=== PATIENT | male | born 1965 | race Caucasian/White ===

== ENCOUNTER 2017-04-20 23:46 | Emergency (ER) | payer OTHER ==
[~2017-04-20] VITALS: Ht 182.9 cm; Wt 93.0 kg
[~2017-04-20 23:46] MED LIST: DIAZ10TA PO; DOXY100T PO; IBUP-1223 PO; OXYC-306 PO; OXYC40TA27 PO; OXYC5TAB3 PO; SULF1TAB24 PO
[2017-04-20 23:58] VITALS: BP 131/82
[2017-04-21 00:46] LABS: BASOPHILS # (AUTO) 0.11 x10^3/uL (0-0.1); BASOPHILS % (AUTO) 1 % (0-1); EOSINOPHILS # (AUTO) 0.14 x10^3/uL (0-0.4); EOSINOPHILS % (AUTO) 1 % (1-7); LYMPHOCYTES # (AUTO) 2.85 x10^3/uL (1-3.4); LYMPHOCYTES % (AUTO) 22 % (22-44); MD NO; MEAN CORPUSCULAR HEMOGLOBIN 27.8 pg (27.5-34.5); MEAN CORPUSCULAR HGB CONC 32.8 g/dL (33.2-36.2); MEAN CORPUSCULAR VOLUME 84.7 fL (81-97); MEAN PLATELET VOLUME 8.4 fL (7.4-10.4); MONOCYTES # (AUTO) 0.94 x10^3/uL (0.2-0.8); MONOCYTES % (AUTO) 7 % (2-9); NEUTROPHILS % (AUTO) 68 % (42-75); PLATELET COUNT 397 x10^3/uL (130-400); RED BLOOD COUNT 5.16 x10^6/uL (4.38-5.82); RED CELL DISTRIBUTION WIDTH 14.6 % (9.4-14.8)
[2017-04-21 00:55] LABS: ALBUMIN 3.7 g/dL (3.4-5.0); ANION GAP 8 mmol/L (5-15); CALCIUM 8.9 mg/dL (8.5-10.1); CHLORIDE 105 mmol/L (98-107); CREATININE 0.86 mg/dL (0.7-1.3)
[2017-04-21 00:58] LABS: TROPONIN I < 0.015 ng/mL (0.000-0.045)
[2017-04-21] MEDS ORDERED: DEXTROSE 50%, 50ML SYRINGE IVPush ONE (01:00)
[2017-04-21] MEDS ORDERED: KETOROLAC 30 MG/1 ML ONE (02:29)
[2017-04-21] MEDS ORDERED: HYDROcodone/APAP 5/325 TABLET ONE (02:29)
[2017-04-21] MEDS ORDERED: KETOROLAC 30 MG/1 ML IM ONE (02:30)
[2017-04-21] MEDS ORDERED: HYDROcodone/APAP 5/325 TABLET PO ONE (02:30)
== END 2017-04-21 02:37 | disposition home or self-care (01) ==
LOC: ED 04-21 00:01
DX: S06.0X0A Concussion without loss of consciousness, initial encounter (principal); S13.4XXA Sprain of ligaments of cervical spine, initial encounter; M47.892 Other spondylosis, cervical region; F17.200 Nicotine dependence, unspecified, uncomplicated; G40.909 Epilepsy, unspecified, not intractable, without status epilepticus; W22.8XXA Striking against or struck by other objects, initial encounter; Y93.89 Activity, other specified; Y92.89 Other specified places as the place of occurrence of the external cause; Y99.8 Other external cause status; Z98.1 Arthrodesis status; Z88.5 Allergy status to narcotic agent
CPT/HCPCS: 36415; 70450; 71045; 72125; 80048; 82040; 84484; 85025; 93005; 96372; 99285; J1885

== ENCOUNTER 2017-07-07 10:07 | Emergency (ER) | payer SELFPAY ==
[~2017-07-07] VITALS: Ht 182.9 cm; Wt 91.0 kg
[2017-07-07] MEDS ORDERED: SODIUM CHLORIDE FLUSH 10ML SYR IVF ONE (10:30)
[2017-07-07] MEDS ORDERED: VANCOMYCIN PER PHARMACY MC ONE (10:30)
[2017-07-07] MEDS ORDERED: VANCOMYCIN 1,800 MG in SODIUM CHLORIDE 0.9% 250 ML IV ONE (11:00)
[2017-07-07 11:05] LABS: BASOPHILS # (AUTO) 0.03 x10^3/uL (0-0.1); BASOPHILS % (AUTO) 0 % (0-1); EOSINOPHILS # (AUTO) 0.22 x10^3/uL (0-0.4); EOSINOPHILS % (AUTO) 2 % (1-7); LYMPHOCYTES # (AUTO) 1.08 x10^3/uL (1-3.4); LYMPHOCYTES % (AUTO) 9 % (22-44); MD NO; MEAN CORPUSCULAR HEMOGLOBIN 28.2 pg (27.5-34.5); MEAN CORPUSCULAR VOLUME 85.4 fL (81-97); MEAN PLATELET VOLUME 7.9 fL (7.4-10.4); MONOCYTES # (AUTO) 0.83 x10^3/uL (0.2-0.8); MONOCYTES % (AUTO) 7 % (2-9); NEUTROPHILS # (AUTO) 10.18 x10^3/uL (1.8-6.8); NEUTROPHILS % (AUTO) 83 % (42-75); PLATELET COUNT 441 x10^3/uL (130-400); RED BLOOD COUNT 4.45 x10^6/uL (4.38-5.82); RED CELL DISTRIBUTION WIDTH 14.6 % (9.4-14.8)
[2017-07-07 11:16] LABS: ANION GAP 8 mmol/L (5-15); CALCIUM 8.2 mg/dL (8.5-10.1); CHLORIDE 103 mmol/L (98-107); CREATININE 0.82 mg/dL (0.7-1.3)
[2017-07-07] MEDS ORDERED: LIDOCAINE-MPF 1%, 5ML ONE ×2 (12:01)
[2017-07-07 13:10] VITALS: BP 108/60
== END 2017-07-07 13:13 | disposition home or self-care (01) ==
LOC: ED 11:32
DX: L02.416 Cutaneous abscess of left lower limb (principal)
CPT/HCPCS: 36415; 73701; 80048; 82040; 83605; 85025; 87040; 96365; 96366; 99285; J3370; J7050

== ENCOUNTER 2020-12-22 09:51 | Inpatient (IN) | payer MEDICAID ==
[~2020-12-22] VITALS: Ht 182.9 cm; Wt 91.8 kg
[~2020-12-22 09:51] MED LIST changes: -OXYC-306 PO; +OXYC1TAB16 PO; -OXYC5TAB3 PO; +OXYC5TAB98 PO; +SULF-23 PO; -SULF1TAB24 PO
[2020-12-22] MEDS ORDERED: SODIUM CHLORIDE 0.9% 1,000ML IVBOLUS ONE (10:00)
[2020-12-22] MEDS ORDERED: ACETAMINOPHEN 500 MG TABLET PO ONE (10:00)
[2020-12-22 10:55] LABS: BASOPHILS % (AUTO) 1 % (0-1); EOSINOPHILS % (AUTO) 1 % (1-7); LYMPHOCYTES % (AUTO) 14 % (22-44); MEAN CORPUSCULAR HEMOGLOBIN 27.9 pg (27.5-34.5); MEAN PLATELET VOLUME 8.2 fL (7.4-10.4); MONOCYTES % (AUTO) 8 % (2-9); NEUTROPHILS % (AUTO) 78 % (42-75); PLATELET COUNT 388 x10^3/uL (130-400); RED BLOOD COUNT 4.45 x10^6/uL (4.38-5.82)
[2020-12-22 11:06] LABS: ALANINE AMINOTRANSFERASE 37 U/L (12-78); ALBUMIN 3.1 g/dL (3.4-5.0); ANION GAP 9 mmol/L (5-15); CALCIUM 9.1 mg/dL (8.5-10.1); CHLORIDE 100 mmol/L (98-107); CREATININE 0.71 mg/dL (0.7-1.3)
[2020-12-22 11:08] LABS: ALKALINE PHOSPHATASE 140 U/L (45-117); BILIRUBIN,TOTAL 1.3 mg/dL (0.2-1.0); TOTAL PROTEIN 8.1 g/dL (6.4-8.2)
--- NOTE | 2020-12-22 13:04 | NUR ---
NO ANS X 1
--- NOTE | 2020-12-22 13:11 | NUR ---
TO ROOM FROM LOBBY. NAD.
[2020-12-22] MEDS ORDERED: VANCOMYCIN PER PHARMACY MC ONE (14:00)
[2020-12-22] MEDS ORDERED: LIDOCAINE 1%-EPI 1:100K, 20ML ONE (14:25)
[2020-12-22] MEDS ORDERED: ACETAMINOPHEN 500 MG TABLET ONE (14:26)
[2020-12-22] MEDS ORDERED: LIDOCAINE-MPF 1%, 5ML INFIL ONE (14:30)
[2020-12-22] MEDS ORDERED: PIPERACILLIN/TAZO 3.375 GM in DEXTROSE 5% 50 ML IVPB ONE (14:30)
[2020-12-22] MEDS ORDERED: VANCOMYCIN 2,300 MG in SODIUM CHLORIDE 0.9% 500 ML IV ONE ×3 (15:00→23:30)
--- NOTE | 2020-12-22 15:04 | NUR ---
BEDSIDE REPORT AND CARE FROM FELISA CHOI AT THIS TIME. PT RESTING IN POSITION OF COMFORT. ANTIBIOTICS REQUESTED FROM PHARMACY. A&OX4. VSS. TEMP IMPROVED FROM TIME OF ARRIVAL. AWAITING I&D. I&D SET UP AT BEDSIDE ALREADY BY EMT. PT DENIES NEED TO USE RESTROOM. ALL NEEDS MET AND ADDRESSED. FALL PRECAUTIONS IN PLACE. CALL LIGHT IN REACH
--- NOTE | 2020-12-22 15:21 | NUR ---
PT IN CT
--- NOTE | 2020-12-22 15:33 | NUR ---
CT FAILED- IV INFILTRATED; PT BACK TO ROOM 4 IN ER
--- NOTE | 2020-12-22 15:36 | NUR ---
PT BACK FROM CT, CT STAFF REPORTS IV INFILTRATED DURING EXAM. IV REMOVED, DRESSING CDI. NEW IV TO BE PLACED.
--- NOTE | 2020-12-22 15:51 | NUR ---
DISCUSSED IV INFILTRATION WITH DR. AGUIRRE, AWARE. PT WITH ECCHYMOSIS, SWELLING AT IV SITE. IV REMOVED. DRESSING CDI. WARM COMPRESS IN PLACE PER ERP. DISCUSSED IV ANTIBIOTICS WITH AND PHARMACIST, MICK TO RAOUL SUTHERLAND SENT FROM PHARMACY AFTER ZOSYN COMPLETE. EDTA AT BEDSIDE FOR IV START
--- NOTE | 2020-12-22 16:02 | NUR ---
PT TO BE ADMITTED, POC DISCUSSED WITH PT BY ERP, AGREES TO POC, VERBALIZED UNDERSTANDING. RESTING COMFORTABLY. VSS. DENIES NEED TO USE RESTROOM AND NEED FOR PAIN MEDICATION AT THIS TIME. CALL LIGHT IN REACH. FALL PRECAUTIONS IN PLACE.
--- NOTE | 2020-12-22 16:43 | NUR ---
IV PLACED BY OLVIN EASTON TO RAC, IV ANTIBIOTICS INFUSING PER MD ORDER. VERIFIED BLOOD CULTURES [id number]. DENIES NEED TO USE RESTROOM. CT CALLED AND NOTIFIED IV IN PLACE FOR EXAM. IV SITE L UPPER ARM "BETTER Addendum: 12/22/20 at 1645 by JOE IV SITE LEFT UPPER ARM "BETTER, NOT PAINFUL ANYMORE." SWELLING IMPROVED, NO REDNESS OR STREAKING. VSS. CALL LIGHT IN REACH. FALL PRECAUTIONS IN PLACE
--- NOTE | 2020-12-22 17:02 | NUR ---
PT IN CT
[2020-12-22] MEDS ORDERED: OMNIPAQUE 350 MG/ML, 150 ML BOTTLE ONE (17:27)
--- NOTE | 2020-12-22 17:57 | NUR ---
PT BACK FROM CT, IV ANTIBIOTICS INFUSING ON IV PUMP PER ORDER. VSS. DENIES NEED TO USE RESTROOM. PT REPORTS PAIN INCREASED TO 7/10, REQUESTING PAIN MEDICATION AT THIS TIME. TO DISCUSS WITH ERP. CALL LIGHT IN REACH. FALL PRECAUTIONS IN PLACE
[2020-12-22] MEDS ORDERED: VANCOMYCIN PER PHARMACY MC PRN (18:30)
[2020-12-22] MEDS ORDERED: ONDANSETRON 2MG/ML, 2ML IVPush PRN (18:30)
[2020-12-22] MEDS ORDERED: ENALAPRILAT 1.25 MG/ML, 2ML IVPush PRN (18:30)
[2020-12-22] MEDS ORDERED: hydrALAzine 20 MG/ML, 1ML IVPush PRN (18:30)
[2020-12-22] MEDS ORDERED: BUTALB/APAP/CAFFEINE 50MG/325MG/40MG PO PRN (18:30)
[2020-12-22] MEDS ORDERED: BACLOFEN 10 MG TABLET PO PRN (18:30)
[2020-12-22] MEDS ORDERED: ACETAMINOPHEN 325 MG TABLET PO PRN (18:30)
[2020-12-22] MEDS ORDERED: MELATONIN 5 MG TABLET PO PRN (18:30)
[2020-12-22] MEDS ORDERED: ONDANSETRON ODT 4 MG PO PRN (18:30)
[2020-12-22] MEDS ORDERED: IBUPROFEN 600 MG TABLET PO PRN (18:30)
[2020-12-22] MEDS: AMPICILLIN/SULBACTAM 3 GM in SODIUM CHLORIDE 0.9% 100 ML IV SCH (18:32)
[2020-12-22] MEDS ORDERED: OXYcodone IR 5MG TABLET ONE (18:42)
[2020-12-22] MEDS: OXYcodone IR 5MG TABLET PO PRN ×2 (18:47→23:05)
--- NOTE | 2020-12-22 18:51 | NUR ---
PT MEDICATED NOTED IN EMAR FOR 8/10 LEG PAIN. ASSISTED WITH URINAL. RESTING COMFORTABLY. VSS. AWAITING I&D NOW THAT CT IS RESULTED. CALL LIGHT IN REACH. FALL PRECAUTIONS IN PLACE. PT REQUESTING "SHOT OF DILAUDID BEFORE THEY JOHNNIE THIS THING, I HAVE A HUGE TOLERANCE, I TOOK 160MG DILAUDID BEFORE, I NEED MORE MEDICINE." TO DISCUSS PT REQUEST WITH
[2020-12-22 18:53] LABS: HCT (SEDRATE) 33.1 % (39.2-51.8)
[2020-12-22] MEDS ORDERED: PHARMACOKINETIC MONITORING MC PRN (19:00)
[2020-12-22] MEDS ORDERED: PHARMACOKINETIC CONSULTATION MC ONE (19:00)
--- NOTE | 2020-12-22 19:15 | NUR ---
BEDSIDE REPORT AND TRANSFER OF CARE TO JANNET RN AT THIS TIME.
--- NOTE | 2020-12-22 19:51 | NUR ---
TASK RN: REPORT TO FLOOR RN TESSA, ROOM RECEIVED 345. PRIMARY RN JANNET UPDATED THAT REPORT WAS GIVEN TO FLOOR RN
[2020-12-22] MEDS ORDERED: HYDROmorphone 2 MG/ML, 1ML ONE (19:56)
[2020-12-22] MEDS: HYDROmorphone 2 MG/ML, 1ML IVPush PRN (20:00)
[2020-12-23] MEDS: HYDROmorphone 2 MG/ML, 1ML IVPush PRN ×5 (00:26→20:07)
[2020-12-23] MEDS: AMPICILLIN/SULBACTAM 3 GM in SODIUM CHLORIDE 0.9% 100 ML IV SCH ×4 (00:31→19:22)
[2020-12-23 00:38] VITALS: BP 107/67
[2020-12-23] MEDS: OXYcodone IR 5MG TABLET PO PRN ×3 (03:08→12:16)
[2020-12-23 05:29] LABS: BASOPHILS % (AUTO) 1 % (0-1); EOSINOPHILS % (AUTO) 3 % (1-7); LYMPHOCYTES % (AUTO) 22 % (22-44); MEAN CORPUSCULAR HEMOGLOBIN 28.6 pg (27.5-34.5); MEAN CORPUSCULAR HGB CONC 33.9 g/dL (33.2-36.2); MEAN PLATELET VOLUME 8.4 fL (7.4-10.4); MONOCYTES % (AUTO) 9 % (2-9); NEUTROPHILS % (AUTO) 65 % (42-75); PLATELET COUNT 335 x10^3/uL (130-400); RED BLOOD COUNT 3.95 x10^6/uL (4.38-5.82); RED CELL DISTRIBUTION WIDTH 14.6 % (9.4-14.8)
[2020-12-23 05:36] LABS: ALBUMIN 2.2 g/dL (3.4-5.0); ANION GAP 6 mmol/L (5-15); CHLORIDE 102 mmol/L (98-107)
[2020-12-23 05:39] LABS: ALANINE AMINOTRANSFERASE 31 U/L (12-78); ALKALINE PHOSPHATASE 122 U/L (45-117); BILIRUBIN,TOTAL 0.9 mg/dL (0.2-1.0); CREATININE 0.65 mg/dL (0.7-1.3); TOTAL PROTEIN 6.6 g/dL (6.4-8.2)
[2020-12-23] MEDS: VANCOMYCIN 1,600 MG in SODIUM CHLORIDE 0.9% 250 ML IV SCH ×2 (07:03→19:57)
[2020-12-23 07:21] VITALS: BP 127/68
[2020-12-23] MEDS: SENNA/DOCUSATE TABLET PO SCH (07:48)
[2020-12-23] MEDS ORDERED: VANCOMYCIN 1,600 MG in SODIUM CHLORIDE 0.9% 250 ML IV SCH (11:00)
[2020-12-23 12:42] VITALS: BP 105/54
[2020-12-23 19:53] VITALS: BP 112/71
[2020-12-23] MEDS: NICOTINE 21 MG/24 HR PATCH.TD24 TD SCH (19:57)
[2020-12-24] MEDS: HYDROmorphone 2 MG/ML, 1ML IVPush PRN ×6 (00:22→22:39)
[2020-12-24] MEDS: AMPICILLIN/SULBACTAM 3 GM in SODIUM CHLORIDE 0.9% 100 ML IV SCH ×4 (00:25→18:40)
[2020-12-24 00:57] VITALS: BP 123/74
[2020-12-24] MEDS: OXYcodone IR 5MG TABLET PO PRN ×2 (05:51→21:21)
[2020-12-24] MEDS: VANCOMYCIN 1,600 MG in SODIUM CHLORIDE 0.9% 250 ML IV SCH ×2 (06:29→19:26)
[2020-12-24 06:44] VITALS: BP 118/64
[2020-12-24] MEDS ORDERED: POTASSIUM CHLORIDE 20 MEQ TAB.ER.PRT PO ONE (07:00)
[2020-12-24 08:59] LABS: BASOPHILS % (AUTO) 1 % (0-1); EOSINOPHILS % (AUTO) 4 % (1-7); LYMPHOCYTES % (AUTO) 22 % (22-44); MEAN CORPUSCULAR HGB CONC 33.4 g/dL (33.2-36.2); MEAN PLATELET VOLUME 8.4 fL (7.4-10.4); MONOCYTES % (AUTO) 7 % (2-9); NEUTROPHILS % (AUTO) 67 % (42-75); PLATELET COUNT 395 x10^3/uL (130-400); RED BLOOD COUNT 3.94 x10^6/uL (4.38-5.82); RED CELL DISTRIBUTION WIDTH 14.2 % (9.4-14.8)
[2020-12-24 09:06] LABS: ALBUMIN 2.4 g/dL (3.4-5.0); ANION GAP 6 mmol/L (5-15); CALCIUM 8.3 mg/dL (8.5-10.1); CHLORIDE 105 mmol/L (98-107)
[2020-12-24 09:09] LABS: ALANINE AMINOTRANSFERASE 28 U/L (12-78); ALKALINE PHOSPHATASE 114 U/L (45-117); BILIRUBIN,TOTAL 0.5 mg/dL (0.2-1.0); CREATININE 0.62 mg/dL (0.7-1.3); TOTAL PROTEIN 6.8 g/dL (6.4-8.2)
[2020-12-24] MEDS: SENNA/DOCUSATE TABLET PO SCH (10:04)
[2020-12-24 13:42] VITALS: BP 122/67
[2020-12-24] MEDS: NICOTINE 21 MG/24 HR PATCH.TD24 TD SCH (18:40)
[2020-12-24 20:48] VITALS: BP 129/68
[2020-12-24] MEDS ORDERED: TRAZODONE 50MG TABLET PO PRN (21:00)
[2020-12-25 01:49] VITALS: BP 119/67
[2020-12-25] MEDS: AMPICILLIN/SULBACTAM 3 GM in SODIUM CHLORIDE 0.9% 100 ML IV SCH ×2 (02:10→08:24)
[2020-12-25] MEDS: HYDROmorphone 2 MG/ML, 1ML IVPush PRN ×3 (03:45→12:37)
[2020-12-25] MEDS ORDERED: VANCOMYCIN 1,800 MG in SODIUM CHLORIDE 0.9% 250 ML IV SCH (06:00)
[2020-12-25 07:30] VITALS: BP 112/70
[2020-12-25 07:55] LABS: BASOPHILS % (AUTO) 1 % (0-1); EOSINOPHILS % (AUTO) 4 % (1-7); LYMPHOCYTES % (AUTO) 20 % (22-44); MEAN CORPUSCULAR HGB CONC 33.1 g/dL (33.2-36.2); MEAN PLATELET VOLUME 7.9 fL (7.4-10.4); MONOCYTES % (AUTO) 7 % (2-9); NEUTROPHILS % (AUTO) 69 % (42-75); PLATELET COUNT 511 x10^3/uL (130-400); RED BLOOD COUNT 4.65 x10^6/uL (4.38-5.82); RED CELL DISTRIBUTION WIDTH 14.3 % (9.4-14.8)
[2020-12-25] MEDS: SENNA/DOCUSATE TABLET PO SCH (08:02)
[2020-12-25 08:04] LABS: ALBUMIN 2.8 g/dL (3.4-5.0); ANION GAP 7 mmol/L (5-15); CALCIUM 8.9 mg/dL (8.5-10.1); CHLORIDE 105 mmol/L (98-107)
[2020-12-25 08:11] LABS: ALANINE AMINOTRANSFERASE 35 U/L (12-78); ALKALINE PHOSPHATASE 138 U/L (45-117); BILIRUBIN,TOTAL 0.5 mg/dL (0.2-1.0); CREATININE 0.73 mg/dL (0.7-1.3); TOTAL PROTEIN 8.1 g/dL (6.4-8.2)
[2020-12-25] MEDS ORDERED: OMNIPAQUE 350 MG/ML, 150 ML BOTTLE ONE (09:30)
[2020-12-25] MEDS: OXYcodone IR 5MG TABLET PO PRN (12:33)
== END 2020-12-25 14:50 | disposition left against medical advice (07) | DRG 720 ==
LOC: ED 10:00 → EDIP 18:10 → 3N 20:45
PROVIDERS: ADMIT Family Medicine; ATTEND Hospitalist
PROC: 0H9LXZZ Drainage of Left Lower Leg Skin, External Approach (ICD-10-PCS; principal; 2020-12-22)
DX: A41.9 Sepsis, unspecified organism (principal); E87.1 Hypo-osmolality and hyponatremia; E87.6 Hypokalemia; F17.210 Nicotine dependence, cigarettes, uncomplicated; G89.29 Other chronic pain; L02.416 Cutaneous abscess of left lower limb; L03.116 Cellulitis of left lower limb; Z53.29 Procedure and treatment not carried out because of patient's decision for other reasons; R17 Unspecified jaundice; Z59.0 Homelessness; Z79.891 Long term (current) use of opiate analgesic
CPT/HCPCS: 10060; 36415; 80053; 80202; 83605; 83735; 84145; 85025; 85651; 86140; 87040; 93005; 93306; 93356; 96361; 96365; 96367; G0378; J0295; J1170; J2543; J3370; Q9967; J7030; J7040; J7050